=== PATIENT | female | born 1975 | race Caucasian/White ===

== ENCOUNTER 2020-05-10 09:11 | Emergency (ER) | payer BC ==
[2020-05-10] MEDS ORDERED: ONDANSETRON 4 MG/2 ML VIAL ONE (10:29)
[2020-05-10] MEDS ORDERED: NA CHLORIDE 0.9% 1,000 ML ONE (10:29)
[2020-05-10] MEDS ORDERED: MORPHINE 4 MG/ML SYR ONE (10:29)
[2020-05-10 10:33] LABS: Absolute Lymphocytes (CBC) 1.4 K/uL (0.7-4.9); Basophils % 0.3 % (0-1.3); Hematocrit 40.6 % (36.0-45.0); Lymphocytes % 14.5 % (15.3-44.8); MPV 8.3 fL (7.6-11.3); RBC Red Blood Cell Count 4.79 M/uL (3.86-4.86)
[2020-05-10 10:45] LABS: ALT/SGPT 21 U/L (12-78); AST/SGOT 14 U/L (15-37); Albumin 3.4 g/dL (3.4-5.0); Alkaline Phosphatase 77 U/L (45-117); BUN Blood Urea Nitrogen 14 mg/dL (7-18); Bicarbonate 27 mmol/L (21-32); Bilirubin Direct < 0.1 mg/dL (0-0.2); Bilirubin Total 0.3 mg/dL (0.2-1.0); Glucose Level 121 mg/dL (74-106); Lipase 114 U/L (73-393); Potassium 3.7 mmol/L (3.5-5.1); Protein, Total 7.3 g/dL (6.4-8.2); Sodium Level 142 mmol/L (136-145)
[2020-05-10] MEDS ORDERED: HYDROMORPHONE HCL 2 MG/ML inj ONE (11:03)
--- NOTE | 2020-05-10 11:26 | RAD REPORT ---
EXAM DESCRIPTION: CT - Stone Protocol - 05/10/2020 11:01 am CLINICAL HISTORY: Abdominal pain. Left flank pain COMPARISON: None. TECHNIQUE: Computed axial tomography of the abdomen pelvis was obtained without oral or IV contrast. Lack of IV and oral contrast limits evaluation of solid organs, bowel, and vessels. Coronal reformat doug images were obtained and reviewed. All CT scans are performed using dose optimization technique as appropriate and may include automated exposure control or mA/KV adjustment according to patient size. FINDINGS: Multiple small bilateral renal calculi. Mild left hydronephrosis. Left ureter is dilated. A 4.5 millimeter calculus is present within the distal left ureter. Hounsfield unit 1550 The liver, pancreas and adrenals appear grossly normal. Small low-density splenic lesion nonspecific without IV contrast. It may represent cyst There is no evidence of diverticulitis. 3.2 centimeter low-density structure adjacent to the superior right aspect of the uterus may represen t an ovarian cyst IMPRESSION: A 4.5 millimeter calculus distal left ureter resulting in mild left hydronephrosis 3.2 centimeter low-density structure adjacent to the superior right aspect of the uterus may represen t an ovarian cyst. Follow up ultrasound in a couple months recommended for re-evaluation
[2020-05-10] MEDS ORDERED: HYDROCODONE/APAP 10/325 TAB ONE (12:40)
--- NOTE | 2020-05-10 14:24 | ER ---
Nurse's Notes [facility] Name: Shiela Tong Age: 44 yrs Sex: Female : 1975 Arrival Date: 05/10/2020 Time: 09:16 Bed 16 Private MD: Diagnosis: Distal Left renal calculi with mild hydronephrosis Presentation: 05/10 09:45 Chief complaint: Patient states: left lower back pain that radiates to the front sv started today. Denies urinary symptoms. Coronavirus screen: Client denies travel out of the [place] in the last 14 days. At this time, the client does not indicate any symptoms associated with coronavirus-19. Ebola Screen: No symptoms or risks identified at this time. Risk Assessment: Do you want to hurt yourself or someone else? Patient reports no desire to harm self or others. Onset of symptoms was May 10, 2020. 09:45 Method Of Arrival: Ambulatory sv 09:45 Acuity: RENAN 3 sv 09:46 Initial Sepsis Screen: Does the patient meet any 2 criteria? No. Patient's initial sv sepsis screen is negative. Does the patient have a suspected source of infection? No. Patient's initial sepsis screen is negative. Triage Assessment: 09:45 General: Appears in no apparent distress. uncomfortable, Behavior is calm, cooperative, sv appropriate for age. Pain: Complains of pain in left low back Pain radiates to left femoral area and left inguinal area. Neuro: Level of Consciousness is awake, alert, obeys commands, Oriented to person, place, time, situation, Gait is steady. : Denies burning with urination, urinary frequency. STRIKER OUT: 15:12 LMP N/A - control method ll1 Historical: - Allergies: 09:46 No Known Allergies; sv - PMHx: 09:46 None; sv - PSHx: 09:46 None; sv - Immunization history:: Flu vaccine is not up to date. - Social history:: Smoking status: Patient denies any tobacco usage or history of. Screenin:29 Abuse screen: Denies threats or abuse. Nutritional screening: No deficits noted. tw2 Tuberculosis screening: No symptoms or risk factors identified. Fall Risk None identified. Assessment: 10:15 General: Appears uncomfortable, Behavior is calm, cooperative, appropriate for age. ll1 Pain: Complains of pain in L flank Pain radiates to LLQ Pain currently is 10 out of 10 on a pain scale. Quality of pain is described as aching. Neuro: No deficits noted. Level of Consciousness is awake, alert. Cardiovascular: No deficits noted. Respiratory: No deficits noted. GI: Abdomen is flat, Bowel sounds present X 4 quads. Reports lower abdominal pain. : Reports L flank pain. 10:53 Reassessment: Patient and/or family updated on plan of care and expected duration. Pain ll1 level reassessed. Patient is alert, oriented x 3, equal unlabored respirations, skin warm/dry/pink. to CT via stretcher. 11:11 Reassessment: Patient is alert, oriented x 3, equal unlabored respirations, skin ll1 warm/dry/pink. Patient states feeling better. Patient states symptoms have improved. 12:30 Reassessment: Patient and/or family updated on plan of care and expected duration. Pain ll1 level reassessed. Patient states feeling better. 13:30 Reassessment: Patient and/or family updated on plan of care and expected duration. Pain ll1 level reassessed. Patient is alert, oriented x 3, equal unlabored respirations, skin warm/dry/pink. 14:30 Reassessment: Patient and/or family updated on plan of care and expected duration. Pain ll1 level reassessed. Patient is alert, oriented x 3, equal unlabored respirations, skin warm/dry/pink. 15:11 Reassessment: Patient and/or family updated on plan of care and expected duration. Pain ll1 level reassessed. Patient is alert, oriented x 3, equal unlabored respirations, skin warm/dry/pink. Patient states feeling better. Vital Signs: 09:46 BP 145 / 94; Pulse 86; Resp 18; Temp 97.4; Pulse Ox 100% ; Weight 99.79 kg; Height 5 sv ft. 10 in. (177.80 cm); Pain 7/10; 11:12 BP 142 / 87; Pulse 62; Resp 17; Pulse Ox 100% ; Pain 5/10; ll1 12:30 BP 127 / 70; Pulse 60; Resp 17; Pulse Ox 100% ; Pain 5/10; ll1 14:40 BP 143 / 85; Pulse 64; Resp 17; Pulse Ox 96% ; ll1 15:00 BP 141 / 89; Pulse 60; Resp 17; Pulse Ox 98% ; Pain 4/10; ll1 09:46 Body Mass Index 31.57 (99.79 kg, 177.80 cm) sv ED Course: 09:16 Patient arrived in ED. mr 09:30 Marcel Short MD is Attending Physician. kdr 09:44 Arm band placed on. sv 09:45 Triage completed. sv 09:49 Roxana Taylor, ALIYAH is Primary Nurse. ll1 10:18 Inserted saline lock: 20 gauge in right antecubital area, using aseptic technique. tw2 Blood collected. 10:57 Patient has correct armband on for positive identification. Bed in low position. Call ll1 light in reach. Side rails up X 1. 11:01 CT Stone Protocol In Process Unspecified. EDMS 15:12 No provider procedures requiring assistance completed. IV discontinued, intact, ll1 bleeding controlled, No redness/swelling at site. Pressure dressing applied. Administered Medications: 10:21 Drug: NS 0.9% 1000 ml Route: IV; Rate: 1 bolus; Site: right antecubital; tw2 15:01 Follow up: Response: No adverse reaction; RASS: Alert and Calm (0); IV Status: ll1 Completed infusion; IV Intake: 1000ml 10:21 Drug: Zofran (Ondansetron) 4 mg Route: IVP; Site: right antecubital; tw2 15:10 Follow up: Response: No adverse reaction; RASS: Alert and Calm (0) ll1 10:23 Drug: morphine 4 mg Route: IVP; Site: right antecubital; tw2 10:50 Follow up: Response: No adverse reaction; Pain is unchanged, physician notified; RASS: ll1 Alert and Calm (0) 10:54 Drug: Dilaudid 1 mg Route: IVP; Site: right antecubital; ll1 14:00 Follow up: Response: No adverse reaction; Pain is decreased; RASS: Alert and Calm (0) ll1 12:30 Drug: [place] 10 mg-325 mg 1 tabs Route: PO; ll1 15:11 Follow up: Response: No adverse reaction; RASS: Alert and Calm (0) ll1 14:45 Drug: Dilaudid 1 mg Route: IVP; Site: right antecubital; ll1 15:11 Follow up: Response: No adverse reaction; Pain is decreased; RASS: Alert and Calm (0) ll1 Intake: 15:01 IV: 1000ml; Total: 1000ml. ll1 Outcome: 14:22 Discharge ordered by . kdr 15:12 Discharged to home ambulatory. ll1 15:12 Condition: stable 15:12 Discharge instructions given to patient, family, Instructed on discharge instructions, follow up and referral plans. medication usage, Demonstrated understanding of instructions, follow-up care, medications, Prescriptions given X 4. 15:13 Patient left the ED. 1 Signatures: Dispatcher [employer] Shelby Feng, RN RN Marcel Downing MD MD kdr Rivera, Mary mr Wise, Tara, RN RN tw2 Roxana Taylor RN RN 1
--- NOTE | 2020-05-10 14:24 | EDPHYS ---
Physician Documentation [facility] Name: Shiela Tong Age: 44 yrs Sex: Female : 1975 Arrival Date: 05/10/2020 Time: 09:16 Bed 16 Private MD: ED Physician Marcel Short HPI: 05/10 17:30 This 44 yrs old Female presents to ER via Ambulatory with complaints of Back kdr Pain. 17:30 The patient presents with pain that is acute, with no known mechanism of injury. The kdr symptoms are located in the low back, Left flank. Onset: The symptoms/episode began/occurred suddenly, this morning. The pain radiates to the left mid back. Associated signs and symptoms: Pertinent positives: nausea, Pertinent negatives: chest pain, constipation, dysuria, urinary retention, vomiting, weakness. The problem was sustained from unknown cause. Modifying factors: The patient symptoms are alleviated by nothing, the patient symptoms are aggravated by nothing. Severity of symptoms: At their worst the symptoms were severe, incapacitating, just prior to arrival, in the emergency department the symptoms are unchanged. The patient has not experienced similar symptoms in the past. [employer] INST[employer]ER: 15:12 LMP N/A - control method ll1 Historical: - Allergies: 09:46 No Known Allergies; sv - PMHx: 09:46 None; sv - PSHx: 09:46 None; sv - Immunization history:: Flu vaccine is not up to date. - Social history:: Smoking status: Patient denies any tobacco usage or history of. ROS: 17:30 Constitutional: Negative for fever, chills, and weight loss, Eyes: Negative for injury, kdr pain, redness, and discharge, Neck: Negative for injury, pain, and swelling, Cardiovascular: Negative for chest pain, palpitations, and edema, Respiratory: Negative for shortness of breath, cough, wheezing, and pleuritic chest pain, Abdomen/GI: Negative for abdominal pain, nausea, vomiting, diarrhea, and constipation, : Negative for injury, bleeding, discharge, and swelling, MS/Extremity: Negative for injury and deformity, Skin: Negative for injury, rash, and discoloration, Neuro: Negative for headache, weakness, numbness, tingling, and seizure activity. Psych: Negative for depression, anxiety, suicide ideation, homicidal ideation, and hallucinations, Allergy/Immunology: Negative for hives, rash, and allergies, Endocrine: Negative for neck swelling, polydipsia, polyuria, polyphagia, and marked weight changes, Hematologic/Lymphatic: Negative for swollen nodes, abnormal bleeding, and unusual bruising. 17:30 Back: Positive for pain at rest, flank pain, on the left, radiated pain. Exam: 17:30 Constitutional: This is a well developed, well nourished patient who is awake, alert, kdr and in no acute distress. Head/Face: Normocephalic, atraumatic. Eyes: Pupils equal round and reactive to light, extra-ocular motions intact. Lids and lashes normal. Conjunctiva and sclera are non-icteric and not injected. Cornea within normal limits. Periorbital areas with no swelling, redness, or edema. Neck: Trachea midline, no thyromegaly or masses palpated, and no cervical lymphadenopathy. Supple, full range of motion without nuchal rigidity, or vertebral point tenderness. No Meningismus. Chest/axilla: Normal chest wall appearance and motion. Nontender with no deformity. No lesions are appreciated. Cardiovascular: Regular rate and rhythm with a normal S1 and S2. No gallops, murmurs, or rubs. Normal PMI, no JVD. No pulse deficits. Respiratory: Lungs have equal breath sounds bilaterally, clear to auscultation and percussion. No rales, rhonchi or wheezes noted. No increased work of breathing, no retractions or nasal flaring. Abdomen/GI: Soft, non-tender, with normal bowel sounds. No distension or tympany. No guarding or rebound. No evidence of tenderness throughout. Skin: Warm, dry with normal turgor. Normal color with no rashes, no lesions, and no evidence of cellulitis. MS/ Extremity: Pulses equal, no cyanosis. Neurovascular intact. Full, normal range of motion. Neuro: Awake and alert, GCS 15, oriented to person, place, time, and situation. Cranial nerves II-XII grossly intact. Motor strength 5/5 in all extremities. Sensory grossly intact. Cerebellar exam normal. Normal gait. Psych: Awake, alert, with orientation to person, place and time. Behavior, mood, and affect are within normal limits. 17:30 Back: pain, that is mild, that is moderate, of the left mid back, ROM is painful, normal spinal alignment noted, CVA tenderness, that is moderate, is noted on the left. Vital Signs: 09:46 BP 145 / 94; Pulse 86; Resp 18; Temp 97.4; Pulse Ox 100% ; Weight 99.79 kg; Height 5 sv ft. 10 in. (177.80 cm); Pain 7/10; 11:12 BP 142 / 87; Pulse 62; Resp 17; Pulse Ox 100% ; Pain 5/10; ll1 12:30 BP 127 / 70; Pulse 60; Resp 17; Pulse Ox 100% ; Pain 5/10; ll1 14:40 BP 143 / 85; Pulse 64; Resp 17; Pulse Ox 96% ; ll1 15:00 BP 141 / 89; Pulse 60; Resp 17; Pulse Ox 98% ; Pain 4/10; ll1 09:46 Body Mass Index 31.57 (99.79 kg, 177.80 cm) sv MDM: 14:07 ED course: Awaiting the patient to provide urine. kdr 14:22 Patient medically screened. kdr 17:30 Data reviewed: vital signs, nurses notes, lab test result(s), radiologic studies. kdr Counseling: I had a detailed discussion with the patient and/or guardian regarding: the historical points, exam findings, and any diagnostic results supporting the discharge/admit diagnosis, lab results, radiology results, the need for outpatient follow up. Special discussion: Based on the patient's Hx, exam, and Dx evaluation, there is no indication for emergent surgery or inpatient Tx. It is understood by the patient/guardian that if the Sx's persist or worsen they need to return immediately for re-evaluation. 05/10 10:02 Order name: Basic Metabolic Panel; Complete Time: 12:00 kdr 05/10 10:02 Order name: CBC with Diff; Complete Time: 12:00 kdr 05/10 10:02 Order name: Hepatic Function; Complete Time: 12:00 kdr 05/10 10:02 Order name: Lipase; Complete Time: 12:00 kdr 05/10 14:23 Order name: Urine Dipstick--Ancillary (enter results) bd 05/10 14:23 Order name: Urine --Ancillary (enter results) bd 05/10 10:03 Order name: CT Stone Protocol; Complete Time: 12:00 kdr 05/10 15:11 Order name: Urine --Ancillary EDMI 05/10 15:11 Order name: Urine Dipstick-Ancillary EDMI 05/10 10:02 Order name: IV Saline Lock; Complete Time: 10:28 kdr 05/10 10:02 Order name: Labs collected and sent; Complete Time: 10:29 kdr 05/10 10:03 Order name: Urine Dipstick-Ancillary (obtain specimen); Complete Time: 15:01 kdr 05/10 10:03 Order name: Urine Test (obtain specimen); Complete Time: 15:01 kdr Administered Medications: 10:21 Drug: NS 0.9% 1000 ml Route: IV; Rate: 1 bolus; Site: right antecubital; tw2 15:01 Follow up: Response: No adverse reaction; RASS: Alert and Calm (0); IV Status: ll1 Completed infusion; IV Intake: 1000ml 10:21 Drug: Zofran (Ondansetron) 4 mg Route: IVP; Site: right antecubital; tw2 15:10 Follow up: Response: No adverse reaction; RASS: Alert and Calm (0) ll1 10:23 Drug: morphine 4 mg Route: IVP; Site: right antecubital; tw2 10:50 Follow up: Response: No adverse reaction; Pain is unchanged, physician notified; RASS: ll1 Alert and Calm (0) 10:54 Drug: Dilaudid 1 mg Route: IVP; Site: right antecubital; ll1 14:00 Follow up: Response: No adverse reaction; Pain is decreased; RASS: Alert and Calm (0) ll1 12:30 Drug: [place] 10 mg-325 mg 1 tabs Route: PO; ll1 15:11 Follow up: Response: No adverse reaction; RASS: Alert and Calm (0) ll1 14:45 Drug: Dilaudid 1 mg Route: IVP; Site: right antecubital; ll1 15:11 Follow up: Response: No adverse reaction; Pain is decreased; RASS: Alert and Calm (0) ll1 Disposition: 05/10/20 14:22 Discharged to Home. Impression: Distal Left renal calculi with mild hydronephrosis. - Condition is Stable. - Discharge Instructions: Kidney Stones, [id number]. - Prescriptions for Tylenol- Codeine #3 300-30 mg Oral Tablet - take 2 tablet by ORAL route every 6 hours As needed; 6 tablet. Zofran 4 mg Oral Tablet - take 1 tablet by ORAL route every 4-6 hours As needed; 12 tablet. Flomax 0.4 mg Oral Capsule, Sust. Release 24 hr - take 1 capsule by ORAL route once daily 1/2 hour following the same meal each day; 10 capsule. Bactrim DS 800- 160 mg Oral Tablet - take 1 tablet by ORAL route every 12 hours for 3 days; 6 tablet. - Medication Reconciliation Form, Thank You Letter, Antibiotic Education, Prescription Opioid Use form. - Follow up: Private Physician; When: 2 - 3 days; Reason: If symptoms return, Further diagnostic work-up, Recheck today's complaints, Continuance of care, Re-evaluation by your physician. - Problem is new. - Symptoms have improved. Signatures: Dispatcher [employer] Shelby Feng, RN RN Marcel Downing MD MD kdr Merry Sterling RN RN tw2 Roxana Taylor RN RN ll1 Corrections: (The following items were deleted from the chart) 14:24 14:22 05/10/2020 14:22 Discharged to Home. Impression: Left renal calculi with mild kdr hydronephrosis. Condition is Stable. Forms are Medication Reconciliation Form, Thank You Letter, Antibiotic Education, Prescription Opioid Use. Follow up: Private Physician; When: 2 - 3 days; Reason: If symptoms return, Further diagnostic work-up, Recheck today's complaints, Continuance of care, Re-evaluation by your physician. Problem is new. Symptoms have improved. kdr 15:13 14:24 05/10/2020 14:22 Discharged to Home. Impression: Distal Left renal calculi with ll1 mild hydronephrosis. Condition is Stable. Forms are Medication Reconciliation Form, Thank You Letter, Antibiotic Education, Prescription Opioid Use. Follow up: Private Physician; When: 2 - 3 days; Reason: If symptoms return, Further diagnostic work-up, Recheck today's complaints, Continuance of care, Re-evaluation by your physician. Problem is new. Symptoms have improved. kdr
[2020-05-10 15:11] LABS: Urine Blood 3+ (NEG); Urine Glucose NEGATIVE (NEG); Urine Protein NEGATIVE (NEG)
[2020-05-10 16:00] VITALS: TEMP 97.4
[2020-05-10 16:07] VITALS: BP 141/89; O2SAT 98
== END 2020-05-10 15:13 | disposition home or self-care (01) ==
LOC: ER 09:11
DX: N13.2 Hydronephrosis with renal and ureteral calculous obstruction (principal)
CPT/HCPCS: 96361; 85025; 80048; 36415; 81025; 80076; 81003; 83690; 76377; 74176; 96375; 96374; 99284; J1170; J7030; J2405